=== PATIENT | male | born 1990 | race Caucasian/White ===

== ENCOUNTER 2022-08-15 17:32 | Emergency (ER) | payer OTHER ==
[~2022-08-15] VITALS: Ht 182.9 cm; Wt 77.1 kg
[2022-08-15] MEDS ORDERED: CLONAZEPAM1 MG PO (18:57)
[2022-08-15] MEDS ORDERED: BUPRENORPHINE HC2 M1 SL (18:57)
[2022-08-15] MEDS ORDERED: CYCL10 PO (20:52)
== END 2022-08-15 20:58 | disposition home or self-care (01) ==
LOC: ER 17:32
DX: M51.36 Other intervertebral disc degeneration, lumbar region (principal); F17.200 Nicotine dependence, unspecified, uncomplicated; Z88.0 Allergy status to penicillin
CPT/HCPCS: 51798; 72100; A9270; J1885

== ENCOUNTER 2022-10-08 18:35 | Emergency (ER) | payer OTHER ==
[~2022-10-08] VITALS: Ht 185.4 cm; Wt 76.2 kg
[~2022-10-08 18:35] MED LIST: BUPRENORPHINE HC2 M1 SL; CLONAZEPAM1 MG PO; CYCL10 PO
[2022-10-08 19:07] VITALS: BP 148/96
[2022-10-08] MEDS ORDERED: CEPH500 PO (20:43)
== END 2022-10-08 20:56 | disposition home or self-care (01) ==
LOC: ER 18:35
DX: S31.33XA Puncture wound without foreign body of scrotum and testes, initial encounter (principal); F17.200 Nicotine dependence, unspecified, uncomplicated; W19.XXXA Unspecified fall, initial encounter; Z88.0 Allergy status to penicillin
CPT/HCPCS: 76870; 90471; 90714; 96372; 99283-25; A9270; J3301

== ENCOUNTER 2022-10-20 03:12 | Inpatient (IN) | payer OTHER ==
[~2022-10-20] VITALS: Ht 185.4 cm; Wt 76.2 kg
[~2022-10-20 03:12] MED LIST changes: +CEPH500 PO
[2022-10-20 04:02] LABS: BASOPHILS ABSOLUTE AUTO 0.04 K/mm3 (0.00-0.23); BASOPHILS PERCENT AUTO 0 % (0-2); EOSINOPHILS ABSOLUTE AUTO 0.35 K/mm3 (0.00-0.68); EOSINOPHILS PERCENT AUTO 2 % (0-6); Hematocrit 36.7 % (37.0-53.0); Hemoglobin 12.2 g/dL (13.5-17.5); IMMATURE GRAN PERCENT AUTO 1 % (0-1); LYMPHOCYTES ABSOLUTE AUTO 2.05 K/mm3 (0.84-5.20); LYMPHOCYTES PERCENT AUTO 10 % (21-46); MONOCYTES ABSOLUTE AUTO 1.56 K/mm3 (0.16-1.47); MONOCYTES PERCENT AUTO 8 % (4-13); Mean Corpuscular HGB 28.1 pg (26.0-34.0); Mean Corpuscular HGB Conc 33.2 g/dL (31.5-36.5); Mean Corpuscular Volume 85 fL (80-100); Mean Platelet Volume 9.1 fL (9.1-12.4); NEUTROPHILS ABSOLUTE AUTO 16.49 K/mm3 (1.96-9.15); NEUTROPHILS PERCENT AUTO 80 % (41-73); Platelet Count 342 K/mm3 (150-400); RDW Coefficient Variation 12.6 % (11.7-14.2); RDW Standard Deviation 38.9 fL (35.1-46.3); Red Blood Cell Count 4.34 M/mm3 (4.30-5.90); White Blood Cell Count 20.59 K/mm3 (4.00-11.30)
[2022-10-20 04:18] LABS: Bun/Creatinine Ratio 19.7 (12.0-20.0); C-REACTIVE PROTEIN, EXT RANGE 11.9 mg/dL (0.000-0.300); Calcium, Blood 8.7 mg/dL (8.5-10.1); Creatinine, Blood 0.86 mg/dL (0.60-1.20); Potassium, Blood 3.9 mmol/L (3.5-5.5)
[2022-10-20 07:34] VITALS: BP 104/55
[2022-10-20 13:01] LABS: U Amphetamine Screen DETECTED; U Barbituate Screen Not Detected; U Benzodiazapine Screen Not Detected; U Buprenorphine Screen Not Detected; U Cannabinoids Screen Not Detected; U Cocaine Screen Not Detected; U Methadone Screen Not Detected; U Methamphetamine Screen DETECTED; U Opiates Screen Not Detected; U Oxycodone Screen Not Detected; U Phencyclidine Screen Not Detected; U Propoxyphene Screen Not Detected
[2022-10-20 15:58] VITALS: BP 110/74
--- NOTE | 2022-10-20 16:55 | NUR ---
END OF SHIFT SUMMARY PT A/O X4, ADMITTED TO FLOOR AT 0720 FROM EMERGENCY DEPT DUE TO INCREASING PAIN, REDNESS, AND SWELLING IN LEFT ARM. PUSTULE ON LEFT WRIST BUT PT DESCRIBES PAIN FROM THE FINGERS TO THE SHOULDER ON LEFT SIDE. PT WAS ON ABX FOR 5 DAYS STARTED ON 10-08-22 AFTER FALLING ON A BRANCH CAUSING AN ABRASION TO THE SCROTAL AREA. PT HAS MANY RED, SCAB-LIKE PUSTULES ON ARMS, HANDS, AND LEGS THAT HE STATES WERE SMALL SORES OR INGROWN HAIRS THAT HAVE RECENTLY WORSENED. PT ADMITTED TO USE OF METHAMPHETAMINES/AMPHETAMINES AND WAS POSITIVE. PT SLEPT MUCH OF THE SHIFT. INDEPENDENT AND ABLE TO CALL FOR ASSISTANCE.
[2022-10-20 19:48] VITALS: BP 118/64
--- NOTE | 2022-10-21 04:30 | NUR ---
SHIFT SUMMARY 32 YR M ADMITTED ON 10/20/22 FOR CELLULITIS OF RIGHT WRIST. FULL CODE. NO ACUTE CHANGES THIS SHIFT. PT C/O PAIN TO RIGHT HAND AND ARM AND IS BEING MEDICATED PER EMAR. HE IS A&O X 4 AND IS INDEPENDANT IN THE ROOM. HE HAS SLEPT FOR MOST OF THIS SHIFT BUT DID HAVE FAMILY VISIT AT BEGINNING OF SHIFT. HE IS ABLE TO MAKE NEEDS KNOWN AND IS COOPERATIVE WITH CARE.
[2022-10-21 05:40] LABS: BASOPHILS ABSOLUTE AUTO 0.04 K/mm3 (0.00-0.23); BASOPHILS PERCENT AUTO 0 % (0-2); EOSINOPHILS ABSOLUTE AUTO 0.18 K/mm3 (0.00-0.68); EOSINOPHILS PERCENT AUTO 1 % (0-6); Hematocrit 36.4 % (37.0-53.0); Hemoglobin 12.1 g/dL (13.5-17.5); IMMATURE GRAN ABSOLUTE AUTO 0.16 K/mm3 (0.00-0.10); IMMATURE GRAN PERCENT AUTO 1 % (0-1); LYMPHOCYTES ABSOLUTE AUTO 2.01 K/mm3 (0.84-5.20); LYMPHOCYTES PERCENT AUTO 9 % (21-46); MONOCYTES ABSOLUTE AUTO 1.52 K/mm3 (0.16-1.47); MONOCYTES PERCENT AUTO 7 % (4-13); Mean Corpuscular HGB 28.3 pg (26.0-34.0); Mean Corpuscular HGB Conc 33.2 g/dL (31.5-36.5); Mean Corpuscular Volume 85 fL (80-100); Mean Platelet Volume 9.7 fL (9.1-12.4); NEUTROPHILS ABSOLUTE AUTO 17.84 K/mm3 (1.96-9.15); NEUTROPHILS PERCENT AUTO 82 % (41-73); Platelet Count 357 K/mm3 (150-400); RDW Standard Deviation 39.8 fL (35.1-46.3); Red Blood Cell Count 4.27 M/mm3 (4.30-5.90); White Blood Cell Count 21.75 K/mm3 (4.00-11.30)
[2022-10-21 05:53] LABS: Albumin, Blood 2.9 g/dL (3.4-5.0); Albumin/Globulin Ratio 0.7 (0.8-1.8); Bilirubin, Total 0.2 mg/dL (0.1-1.0); Calcium, Blood 8.7 mg/dL (8.5-10.1); Creatinine, Blood 0.76 mg/dL (0.60-1.20); Globulin, Blood 4.1 g/dL (2.2-4.0); Potassium, Blood 3.9 mmol/L (3.5-5.5)
[2022-10-21 08:19] VITALS: BP 117/74
--- NOTE | 2022-10-21 11:20 | NUR ---
Pt. is awake in bed and welcomes my visit. Pt is unsettled by the need to be hospitalized for an infection, but also displays evidence of compliance with his care. Facilitated a short life review as Pt. is from out of town. Listen with interest and empathy. Prayed with Pt. Pt. verbalized gratitude for the spiritual care visit.
[2022-10-21] MEDS ORDERED: SULTRIDS PO (12:44)
[2022-10-21] MEDS ORDERED: PROBIOTIC1 EA13 PO (12:44)
[2022-10-21 12:59] LABS: Vancomycin, Trough 5.4 ug/mL (5.0-10.0)
--- NOTE | 2022-10-21 13:32 | NUR ---
No acute changes to patient status. IV ABX administred. Patient reported anxiety d/t nicotine withdrawal. Nicotine patch administred. Discharge ordered. Reviewed education on Bactrum & Probiotic. Patient verbalized understanding. Left unit at 1315.
== END 2022-10-21 13:21 | disposition home or self-care (01) | DRG 872 ==
LOC: ER 03:12 → MEDS 05:29 → ENPENDDIS 10-21 12:12 → MEDS 10-21 13:21
PROVIDERS: Student in an Organized Health Care Education/Training Program; ADMIT Internal Medicine
DX: A41.9 Sepsis, unspecified organism (principal); L03.113 Cellulitis of right upper limb; R23.4 Changes in skin texture; N49.2 Inflammatory disorders of scrotum; F15.10 Other stimulant abuse, uncomplicated; F17.220 Nicotine dependence, chewing tobacco, uncomplicated; M51.36 Other intervertebral disc degeneration, lumbar region; F19.90 Other psychoactive substance use, unspecified, uncomplicated; F41.9 Anxiety disorder, unspecified; M54.50 Low back pain, unspecified; G89.29 Other chronic pain; Z91.81 History of falling; Z86.14 Personal history of Methicillin resistant Staphylococcus aureus infection; Z88.0 Allergy status to penicillin; Z59.00 Homelessness unspecified
CPT/HCPCS: 36415; 73201; 80048; 80053; 80202; 83605; 85025; 86140; 96365-59; 96367-59; 96375-59; 99285-25; A9270; J0692; J1650; J1885; J2930; J3010; J3370; J7030; J7050; Q9967

== ENCOUNTER 2023-03-13 11:53 | Emergency (ER) | payer OTHER ==
[~2023-03-13] VITALS: Ht 182.9 cm; Wt 70.3 kg
[~2023-03-13 11:53] MED LIST changes: +Bactrim Ds Tab1 EACH PO; +CLIN300 PO; +PROBIOTIC1 EA13 PO; +SULTRIDS PO
[2023-03-13 12:07] VITALS: BP 121/79
[2023-03-13 13:27] LABS: U Methamphetamine Screen DETECTED
[2023-03-13 13:28] LABS: U Amphetamine Screen DETECTED; U Barbituate Screen Not Detected; U Benzodiazapine Screen Not Detected; U Buprenorphine Screen Not Detected; U Cannabinoids Screen Not Detected; U Cocaine Screen Not Detected; U Methadone Screen Not Detected; U Opiates Screen Not Detected; U Oxycodone Screen Not Detected; U Phencyclidine Screen Not Detected; U Propoxyphene Screen Not Detected
== END 2023-03-13 12:44 | disposition left against medical advice (07) ==
LOC: ER 11:53
PROVIDERS: Student in an Organized Health Care Education/Training Program
DX: F11.90 Opioid use, unspecified, uncomplicated (principal); F17.200 Nicotine dependence, unspecified, uncomplicated; Z53.21 Procedure and treatment not carried out due to patient leaving prior to being seen by health care provider; Z88.0 Allergy status to penicillin; Z79.899 Other long term (current) drug therapy
CPT/HCPCS: 99284

== ENCOUNTER 2023-04-05 05:08 | Emergency (ER) | payer OTHER ==
[~2023-04-05] VITALS: Ht 182.9 cm; Wt 72.6 kg
[2023-04-05] MEDS ORDERED: NAPR500 PO (07:48)
[2023-04-05 08:57] VITALS: BP 118/78
== END 2023-04-05 08:58 | disposition home or self-care (01) ==
LOC: ER 05:08
DX: S09.90XA Unspecified injury of head, initial encounter (principal); S16.1XXA Strain of muscle, fascia and tendon at neck level, initial encounter; S80.02XA Contusion of left knee, initial encounter; S80.12XA Contusion of left lower leg, initial encounter; V87.8XXA Person injured in other specified noncollision transport accidents involving motor vehicle (traffic), initial encounter; Z88.0 Allergy status to penicillin; Z79.899 Other long term (current) drug therapy; F17.200 Nicotine dependence, unspecified, uncomplicated
CPT/HCPCS: 70450; 71260; 72125; 73562-LT; 73590; 74177; 96374-59; 96375; 99284-25; J2405; J3010; L0160; Q9967

== ENCOUNTER 2023-05-29 13:54 | Emergency (ER) | payer OTHER ==
[~2023-05-29] VITALS: Ht 180.3 cm; Wt 74.8 kg
[~2023-05-29 13:54] MED LIST changes: +NAPR500 PO
[2023-05-29 17:18] VITALS: BP 126/72
== END 2023-05-29 17:30 | disposition home or self-care (01) ==
LOC: ER 13:54
DX: S00.03XA Contusion of scalp, initial encounter (principal); R07.81 Pleurodynia; S00.12XA Contusion of left eyelid and periocular area, initial encounter; R10.812 Left upper quadrant abdominal tenderness; R10.814 Left lower quadrant abdominal tenderness; M54.2 Cervicalgia; M25.522 Pain in left elbow; F17.200 Nicotine dependence, unspecified, uncomplicated; Z88.0 Allergy status to penicillin; Y00.XXXA Assault by blunt object, initial encounter; Y92.830 Public park as the place of occurrence of the external cause
CPT/HCPCS: 70450; 70486; 72125; 73080; 74177; 96374; 99284-25; J1885; J7030; Q9967